=== PATIENT | male | born 1985 | race Caucasian/White ===

== ENCOUNTER 2016-11-02 17:53 | Emergency (ER) ==
[2016-11-02 18:02] VITALS: BP 124/77; TEMP 99; BMI 26.4
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
[2016-11-02] MEDS ORDERED: TORADOL IM STA (18:14)
[2016-11-02] MEDS ORDERED: NAPROSYN PO STA (18:18)
[2016-11-02] MEDS ORDERED: NORFLEX PO STA (18:18)
[2016-11-02 18:25] LABS: BASOPHILS % (AUTO) 0.3 % (0.0-3.0); EOSINOPHILS % (AUTO) 0.2 % (0.0-7.0); HEMATOCRIT 41.7 % (42.0-52.0); HEMOGLOBIN 14.5 g/dl (14.0-18.0); IMMATURE GRANULOCYTE % (AUTO) 0.2 % (0.0-5.0); LYMPHOCYTES % (AUTO) 24.7 (10.0-50.0); MEAN CORPUSCULAR HEMOGLOBIN 31.4 pg (27.0-31.0); MEAN CORPUSCULAR HGB CONC 34.8 (31.8-35.4); MEAN CORPUSCULAR VOLUME 90.3 fl (80.0-94.0); MONOCYTES # (AUTO) 0.8 K/uL (0.4-2.0); MONOCYTES % (AUTO) 6.3 (0-10); NEUTROPHILS # (AUTO) 8.3 K/ul (2.0-6.9); NEUTROPHILS % (AUTO) 68.3; PLATELET COUNT 285 10^3/uL (140-440); RED BLOOD COUNT 4.62 10^6/ul (4.70-6.10); WHITE BLOOD COUNT 12.08 K/ul (4.2-10.2)
[2016-11-02 18:31] LABS: BILIRUBIN,URINE Negative (NEGATIVE); KETONES,URINE Negative (NEGATIVE); LEUKOCYTE ESTERASE ,URINE Negative (NEGATIVE); NITRITE,URINE Negative (NEGATIVE); PROTEIN,URINE Negative (NEGATIVE); URINE, BLOOD Negative (NEGATIVE)
[2016-11-02 18:32] LABS: ADD URINE MICROSCOPIC NO
[2016-11-02 18:45] LABS: ALBUMIN 4.1 g/dL (3.4-5.0); ALBUMIN/GLOBULIN RATIO 1.52; ANION GAP 13.5; BILIRUBIN,TOTAL 0.59 mg/dL (0.00-1.20); BUN/CREATININE RATIO 10.25; CALCIUM 9.2 mg/dL (8.2-10.2); CREATININE 0.78 mg/dL (0.60-1.10); POTASSIUM 3.5 mmol/L (3.5-5.1); TOTAL PROTEIN 6.8 g/dL (6.4-8.2)
== END 2016-11-02 19:35 | disposition home or self-care (01) ==
LOC: ED 17:53
DX: S39.012D Strain of muscle, fascia and tendon of lower back, subsequent encounter (principal); X50.0XXA Overexertion from strenuous movement or load, initial encounter; F17.210 Nicotine dependence, cigarettes, uncomplicated
CPT/HCPCS: 36415; 80053; 81001; 85025; 99282

== ENCOUNTER 2016-11-10 08:32 | Emergency (ER) ==
[2016-11-10 08:38] VITALS: BP 127/82; TEMP 99.1; BMI 27.8
[2016-11-10] MEDS ORDERED: TORADOL IM STA (08:44)
[2016-11-10] MEDS ORDERED: MORPHINE 4 MG/ML SYRINGE IM STA (08:44)
[2016-11-10] MEDS ORDERED: ZOFRAN 4 MG/2 ML IM STA (08:44)
[2016-11-10] MEDS ORDERED: NORFLEX IM STA (08:45)
--- NOTE | 2016-11-10 08:52 | ED.PDOC ---
General ED Provider: Dr. SHANTEL ARMSTRONG Chief Complaint: Back Pain Stated Complaint: back pain lumbar Time Seen by Physician: 08:34 Mode of Arrival: Walk-In Information Source: Patient Exam Limitations: No limitations Nursing and Triage Documentation Reviewed and Agree: Yes Musculoskeletal Complaint Exam - Back Pain Complaint/Exam Mechanism of Injury: Reports: No known trauma Onset/Duration: bending to level concrete sudden pain lumbar Symptoms Are: Still present Timing: Intermittent Episodes Lasting: Days Initial Severity: Severe Current Severity: Moderate Character: Reports: Aching Aggravating: Reports: Movements, Lifting, Bending Alleviating: Reports: Rest, Position Associated Signs and Symptoms: Denies: Swelling, Redness, Bruising, Fever, Weakness, Numbness, Tingling, Abdominal pain, Flank pain, Bladder incontinence, Bowel incontinence, Weight loss, Pain with weight bearing TAD Risk Factors: Reports: Smoking AAA Risk Factors: Reports: None Cauda Equina Risk Factors: Reports: None Epidural Abcess Risk Factors: Reports: None Related Surgical History: Reports: None Focal Tenderness: No Paraspinal Muscle Tenderness: No Paraspinal Muscle Spasm: Yes Scoliosis: No Lordosis: No Kyphosis: No SLR Test: Right Positive, Left Negative Focal Sensory Loss: Present: None Gait: Present: Normal Differential Diagnoses: Strain, Sprain Review of Systems - Review Of Systems Constitutional: Reports: No symptoms Eyes: Reports: No symptoms Ears, Nose, Mouth, Throat: Reports: No symptoms Respiratory: Reports: No symptoms Cardiac: Reports: No symptoms GI: Reports: No symptoms : Reports: No symptoms Musculoskeletal: Reports: Back pain Skin: Reports: No symptoms Neurological: Reports: No symptoms Endocrine: Reports: No symptoms Hematologic/Lymphatic: Reports: No symptoms All Other Systems: Reviewed and Negative Past Medical History - Past Medical History Previously Healthy: Yes Endocrine: Reports: None Cardiovascular: Reports: None Respiratory: Reports: None Hematological: Reports: None Gastrointestinal: Reports: None Genitourinary: Reports: None Neuro/Psych: Reports: None Musculoskeletal: Reports: None, Joint Pain (R shoulder injury at age 10) Cancer: Reports: None - Surgical History General Surgical History: Reports: None - Family History Family History: Reports: None - Social History Smoking Status: Current every day smoker, Heavy tobacco smoker Hx Substance Use: Yes (MARIJUANA) Alcohol Screening: None Physical Exam - Physical Exam Appearance: Well-appearing, No pain distress, Well-nourished Eyes: DIANE, EOMI, Conjunctiva clear ENT: Ears normal, Nose normal, Oropharynx normal Respiratory: Airway patent, Breath sounds clear, Breath sounds equal, Respirations nonlabored Cardiovascular: RRR, Pulses normal, No rub, No murmur GI/: Soft, Nontender, No masses, Bowel sounds normal, No Organomegaly Musculoskeletal: Normal strength, ROM intact, No edema, No calf tenderness Skin: Warm, Dry, Normal color Neurological: Sensation intact, Motor intact, Reflexes intact, Cranial nerves intact, Alert, Oriented Psychiatric: Affect appropriate, Mood appropriate Critical Care Note - Critical Care Note Total Time (mins): 0 Course - Course Orders, Labs, Meds: Orders Category Date Time Status Ketorolac Tromethamine [Toradol] MEDS 11/10/16 08:44 Stat 30 mg IM ONCE STA Morphine Sulfate [Morphine 4 mg/ml Syringe] MEDS 11/10/16 08:44 Stat 4 mg IM ONCE STA Ondansetron HCl/Pf [Zofran 4 mg/2 ml] MEDS 11/10/16 08:44 Stat 4 mg IM ONCE STA Orphenadrine Citrate [Norflex] MEDS 11/10/16 08:45 Stat 30 mg IM ONCE STA Medications Discontinued Medications Generic Name Dose Route Start Last Admin Trade Name Freq PRN Reason Stop Dose Admin Ketorolac Tromethamine 30 mg 11/10/16 08:44 Toradol IM 11/10/16 08:45 ONCE STA Morphine Sulfate 4 mg 11/10/16 08:44 Morphine 4 Mg/Ml Syringe IM 11/10/16 08:45 ONCE STA Ondansetron HCl 4 mg 11/10/16 08:44 Zofran 4 Mg/2 Ml IM 11/10/16 08:45 ONCE STA Orphenadrine Citrate 30 mg 11/10/16 08:45 Norflex IM 11/10/16 08:46 ONCE STA Vital Signs: Temp Pulse Resp BP Pulse Ox 11/10/16 08:33 99.1 F 112 H 16 127/82 98 Departure - Departure Time of Disposition: 09:30 Disposition: HOME SELF-CARE Discharge Problem: Backache Instructions: Acute Low Back Pain (ED), Lower Back Exercises (ED) Condition: Good Pt referred to PMD for follow-up: No Additional Instructions: Please call your Family Physician as soon as possible to schedule a follow-up appointment. Allergies/Adverse Reactions: Allergies No Known Allergies Allergy (Verified 11/10/16 08:38) Home Medications: Ambulatory Orders Naproxen [Naprosyn] 500 mg PO Q12HR PRN #30 tablet 11/02/16 Disposition Discussed With: Patient, Family
== END 2016-11-10 09:28 | disposition home or self-care (01) ==
LOC: ED 08:32
DX: M54.5 Low back pain (principal); F17.210 Nicotine dependence, cigarettes, uncomplicated
CPT/HCPCS: 96372; 99283

== ENCOUNTER 2016-11-23 08:13 | Outpatient (CLI) ==
--- NOTE | 2016-11-23 21:37 | MRI ---
EXAM: Lumbar spine MRI without contrast. HISTORY: Right sciatica. COMPARISON: None. TECHNIQUE: Multiplanar, multisequence MR images were acquired of the lumbar spine without contrast. FINDINGS: Five lumbar-type vertebra are present. The lumbar vertebra are normal in height and intri nsic bone marrow signal. There is mild accentuation of the usual lumbar lordosis and there is a tra ce anterolisthesis of L4 on L5. Marginal osteophytes are present in the lumbar spine and there is m ild irregular concavity of the endplates from T11-12 to L4-5 with a small chronic Schmorl's nodes fr om T11 to L4. There is mild disc space narrowing and disc desiccation at L4-5. Conus medullaris en ds at T12-L1 and has normal configuration and signal intensity. Canal diameter is developmentally n arrow.. The visualized liver, spleen and kidneys are unremarkable. There are no paravertebral masses. T12-L1: The intervertebral disc is normal. L1-2: There is a minor dorsal spondylotic ridge with more focal left paracentral component. There is no central canal stenosis or significant foraminal stenosis. L2-3: There is a minor disc bulge that is asymmetric to the left which minimally narrows the inferi or left neural foramen. This may be physiologic. Mild bilateral hypertrophic facet arthropathy and ligamentum flavum hypertrophy is present without foraminal stenosis. L3-4: There is a minor disc bulge which minimally narrows the inferior neural foramina bilaterally and mild bilateral facet arthropathy. There is minor left foraminal stenosis and no central canal s tenosis. L4-5: There is a diffuse disc bulge that is greatest posteriorly and to the right with posterior en dplate osteophytes and a small superimposed central disc protrusion. This minimally effaces the lyndsey tral thecal sac. Mild to moderate bilateral hypertrophic facet arthropathy and ligamentum flavum hy pertrophy is present which causes mild to moderate bilateral foraminal stenosis. L5-S1: The intervertebral disc is normal. There is mild left and mild to moderate right hypertroph ic facet arthropathy and ligamentum flavum hypertrophy, greater on the right. There is mild to moder ate bilateral foraminal stenosis with possible encroachment on both L5 nerves. There is a synovial cyst along the posterior inferior margin of the left facet joint. IMPRESSION: 1. Mild lumbar degenerative spondylosis with end plate irregularity and small chronic Schmorl's nod es from T11-12 to L4-5. 2. Small central disc protrusion L4-5. 3. No central canal stenosis. 4. Mild to moderate bilateral L4-5 and L5-S1 neural foraminal stenosis with possible encroachment o n both L5 nerves.
== END 2016-11-23 08:14 | disposition home or self-care (01) ==
LOC: RAD 08:13
PROVIDERS: ATTEND Nurse Practitioner Family
DX: M54.41 Lumbago with sciatica, right side (principal)

== ENCOUNTER 2016-11-24 15:53 | Emergency (ER) ==
[2016-11-24] MEDS ORDERED: TORADOL IM STA (16:02)
[2016-11-24 16:06] VITALS: BP 143/86; TEMP 99.4; BMI 25.1
--- NOTE | 2016-11-24 16:07 | ED.PDOC ---
General ED Provider: Dr. SHANTEL ARMSTRONG Chief Complaint: Back Pain Stated Complaint: lumbar back pain chronic Time Seen by Physician: 16:00 (chronic issue ,ultipe prior visits for same issue ) Primary Care Provider: RED CABELLO Nursing and Triage Documentation Reviewed and Agree: Yes Musculoskeletal Complaint Exam - Back Pain Complaint/Exam Onset/Duration: chronic Review of Systems - Review Of Systems Neurological: Reports: No symptoms Endocrine: Reports: No symptoms Hematologic/Lymphatic: Reports: No symptoms All Other Systems: Reviewed and Negative Past Medical History - Surgical History General Surgical History: Reports: None - Family History Family History: Reports: None - Social History Smoking Status: Current every day smoker, Heavy tobacco smoker Hx Substance Use: Yes (MARIJUANA) Alcohol Screening: None Physical Exam - Physical Exam Neurological: Alert, Oriented Psychiatric: Affect appropriate, Mood appropriate Critical Care Note - Critical Care Note Total Time (mins): 0 Course - Course Orders, Labs, Meds: Orders Category Date Time Status Ketorolac Tromethamine [Toradol] MEDS 11/24/16 16:02 Stop Req 60 mg IM ONCE STA Departure - Departure Time of Disposition: 16:30 (seen with nursing staff at all times placed on pain meds urged to follow up with his provider and ortho ) Pt referred to PMD for follow-up: No Additional Instructions: Please call your Family Physician as soon as possible to schedule a follow-up appointment. Prescriptions: Nabumetone [Relafen] 1,000 mg PO BIDWM #8 tablet Allergies/Adverse Reactions: Allergies No Known Allergies Allergy (Verified 11/10/16 08:38) Home Medications: Ambulatory Orders Naproxen [Naprosyn] 500 mg PO Q12HR PRN #30 tablet 11/02/16 Nabumetone [Relafen] 1,000 mg PO BIDWM #8 tablet 11/24/16 Disposition Discussed With: Patient, Family
== END 2016-11-24 16:16 | disposition left against medical advice (07) ==
LOC: ED 15:53
DX: M54.5 Low back pain (principal)
CPT/HCPCS: 99281

== ENCOUNTER 2017-02-09 17:19 | Emergency (ER) ==
[2017-02-09 17:25] VITALS: BP 114/73; TEMP 98.8; BMI 27.8
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
== END 2017-02-09 19:24 | disposition home or self-care (01) ==
LOC: ED 17:19
DX: S20.212A Contusion of left front wall of thorax, initial encounter (principal); T23.272A Burn of second degree of left wrist, initial encounter; V86.99XA Unspecified occupant of other special all-terrain or other off-road motor vehicle injured in nontraffic accident, initial encounter; F17.210 Nicotine dependence, cigarettes, uncomplicated
CPT/HCPCS: 99284